=== PATIENT | female | born 1965 | race Caucasian/White ===

== ENCOUNTER 2016-05-07 11:46 | Emergency (ER) | payer OTHER ==
[~2016-05-07] VITALS: Ht 162.6 cm; Wt 137.4 kg
[~2016-05-07 11:46] MED LIST: ALLEGRA180 MG PO; ALPRAZOLAM1 M2 PO; ANUSOL-HC25 M1 RC; HYDROCHLOROTHIA25 M1 PO; LEVOTHYROXINE200 MC1 PO; LOSARTAN POTAS100 M1 PO; METFORMIN HCL500 M3 PO; METOPROLOL TART25 M1 PO; NASONEX17 GM NASB; PANTOPRAZOLE SO40 M1 PO; PERCOCET 325 MG1 TAB PO; PREDNISONE 20MG20 MG PO; PREDNISONE10 MG PO; TESSALON PERLE100 MG PO; TOPAMAX25 M3 PO; VISTARIL25 MG PO; XOPENEX HFA15 GM INH
--- NOTE | 2016-05-07 12:05 | ED GENERAL ADULT ---
History of Present Illness General Chief Complaint: General Adult Stated Complaint: SENT [facility] CARE FOR EVAL OF HIGH B/P Source: patient Exam Limitations: no limitations Vital Signs & Intake/Output Vital Signs & Intake/Output Vital Signs Date Time Temp Pulse Resp B/P Pulse O2 O2 Flow FiO2 Ox Delivery Rate 05/07 1510 98.0 87 16 160/75 95 Room Air 05/07 1325 174/82 05/07 1312 99 Room Air 05/07 1309 80 183/77 05/07 1308 80 16 183/77 100 Room Air 05/07 1212 180/100 05/07 1151 98.0 90 16 177/115 97 Room Air Allergies Coded Allergies: Iodinated Contrast Media - Oral and (Severe, STOPS BREATHING 05/07/16) ceftriaxone (Severe, FACIAL SWELLING 05/07/16) Cephalosporins (SWELLING 05/07/16) Penicillins (UNKNOWN 05/07/16) Sulfa (Sulfonamide Antibiotics) (UNKNOWN 05/07/16) erythromycin base (SWELLING 05/07/16) metoclopramide (UNKNOWN 05/07/16) moxifloxacin (From AVELOX) (UNKNOWN 05/07/16) Reconcile Medications Alprazolam 1 MG TABLET 1 TAB PO TIDPRN PRN ANXIETY (Reported) Hydrochlorothiazide 25 MG TABLET 1 TAB PO DAILY PRN UNKNOWN (Reported) Hydroxyzine Pamoate 25 MG CAPSULE 1 CAP PO BID PRN SWELLING (Reported) Labetalol HCl 100 MG TABLET 1 TAB PO BID HTN Levalbuterol Tartrate (Xopenex Hfa) 45 MCG/ACTUATION HFA.AER.AD 2 PUF INH Q4-6 PRN PRN ASTHMA (Reported) Levothyroxine Sodium 200 MCG TABLET 1 TAB PO DAILY AC THYROID (Reported) Levothyroxine Sodium (Synthroid) 25 MCG TABLET 0.5 TAB PO DAILY AC THYROID ( Reported) Losartan Potassium 100 MG TABLET 1 TAB PO DAILY BP (Reported) Metformin HCl 500 MG TABLET 2 TAB PO BID DIABETES (Reported) Metoprolol Tartrate 25 MG TABLET 1 TAB PO BID HEART (Reported) Mometasone Furoate (Nasonex) 50 MCG SPRAY.PUMP 1 SPRAY NASB BID NASAL PROBLEMS (Reported) Pantoprazole Sodium 40 MG TABLET.DR 1 TAB PO DAILY GI (Reported) Topiramate (Topamax) 25 MG TABLET 1 TAB PO DAILY MENTAL HEALTH (Reported) Triage Note: PT STATES SHE HAS SOB AND HAS PAIN IN RIGHT SIDE BACK THAT RADIATES UNDER RIGHT BREAST. PT STATES SHE WENT TO WALK IN FOR PAIN AND WAS SENT HERE BECAUSE HER BP WAS ELEVATED. Triage Nurses Notes Reviewed? yes Onset: Gradual Duration: day(s): (3) Timing: no prior history Injury Environment: home Severity: moderate Severity Numbers: 7 Modifying Factors: Improves With: immobilization. Worsens With: movement. HPI: Patient is a 50-year-old female with history of hypertension, hypothyroid, diabetes presenting to the emergency Department chief complaint of shortness of breath, right upper back pain that radiates to the right lower chest of thing going on for the past 3 days. She reports that the pain is worse with deep inspiration. She also reports history of hypertension but currently on non-any medications because medications she was given makes her sick. She also reports intermittent left-sided chest pain. No cough or upper respiratory congestion. Nothing seems to make her symptoms better. She reports intermittent palpitations throughout the day as well. Shortness of breath is worse with exertion. Denies any increasing lower extremity pain or swelling. No travel or recent surgeries. (DOUGLAS FLORES) Past History Travel History Traveled to [place] past 21 day No Medical History Any Pertinent Medical History? 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 No (DOUGLAS FLORES) Review of Systems Review of Systems Constitutional: Reports: malaise. Comments Review of systems: See HPI, All other systems negative. Constitutional, no chills fever or weight loss HEENT: no sore throat no congestion Cardiovascular: No ankle swelling Skin, no jaundice no rashes Respiratory: No cough sputum or hemoptysis GI: No nausea no vomiting : No dysuria No hematuria Muscle skeletal: no neck pain, Neurologic: No numbness no confusion, no headaches Psych: No stress anxiety or depression,. Heme/endocrine: No bruising no bleeding no polyuria or polydipsia Immunology: No splenectomy or history of AIDS (DOUGLAS FLORES) Physical Exam Physical Exam General Appearance: no apparent distress, alert, awake, obese Comments: Obese person in no acute distress HEENT: Pupils equally round and reactive to light and accommodation. Nose is atraumatic. External auditory canal and Tympanic membranes clear. Pharynx normal. No swelling or edema. Neck: Supple, no lymphadenopathy, normal range of motion without pain or tenderness Back: Tender to palpation in the right upper back, no CVA tenderness. Full range of motion Cardiovascular: Regular rate and rhythms no murmurs rubs or gallops, normal JVP Respiratory: Chest is tender to palpation over the right anterior rib miranda, no respiratory distress.breath sounds clear to auscultation bilaterally Abdomen: Soft, obese, nontender nondistended, no appreciable organomegaly. Normal bowel sounds. No ascites Extremity: Nonpitting edema in the calves bilaterally, no calf tenderness to palpation, normal and equal pulses. Neuro: Alert oriented x3 Skin: No appreciable rash on exposed skin, skin is warm and dry. Psych: Appears slightly anxious, memory and judgment is normal. Core Measures ACS in differential dx? Yes CVA/TIA Diagnosis: No Severe Sepsis Present: No Septic Shock Present: No (DOUGLAS FLORES) Progress Differential Diagnoses I considered the following diagnoses in my evaluation of the patient: Hypertensive urgency, pulmonary embolus, bronchitis, pneumonia, medication noncompliance, ACS Plan of Care: Orders Procedure Date/time Status TROPONIN LEVEL 05/07 1724 Active EKG 05/07 1724 Active TOTAL TRIODOTHYROXINE 05/07 1241 Complete FREE T4 05/07 1241 Complete EKG 05/07 1226 Active Telemetry/Recruiting Scheduler 05/07 1221 Active TSH REFLEX 05/07 1221 Complete TROPONIN LEVEL 05/07 1221 Complete PARTIAL THROMBOPLASTIN TIME 05/07 1221 Complete PROTHROMBIN TIME 05/07 1221 Complete D-DIMER 05/07 1221 Complete COMPREHENSIVE METABOLIC PANEL 05/07 1221 Complete CHOLESTEROL 05/07 1221 Complete CBC WITHOUT DIFFERENTIAL 05/07 1221 Complete B-TYPE NATRIURETIC PEP (BNP) 05/07 1221 Complete Laboratory Tests 05/07/16 1807: Troponin I Pending 05/07/16 1241: Anion Gap 9, Estimated GFR > 60, BUN/Creatinine Ratio 17.5, Glucose 111 H, Calcium 9.7, Total Bilirubin 0.6, AST 13 L, ALT 31, Alkaline Phosphatase 78, Troponin I < 0.01, Ynf-T-Wybgtxedtvi Pept 624 H, Total Protein 7.2, Albumin 4.0 , Globulin 3.2, Albumin/Globulin Ratio 1.3, Cholesterol 183, Free T4 1.85 H, Total T3 1.88 H, TSH &T3 &Free T4 Intrp 0.077 L, PT 12.0, INR 1.14, APTT 30, D -Dimer 1413 H, CBC w Diff NO MAN DIFF REQ, RBC 4.86, MCV 83.2, MCH 27.9, RDW 14.5, MPV 7.8, Gran % 68.3, Lymphocytes % 23.3, Monocytes % 5.2, Eosinophils % 2.8, Basophils % 0.4, Absolute Granulocytes 7.4 H, Absolute Lymphocytes 2.5, Absolute Monocytes 0.6, Absolute Eosinophils 0.3, Absolute Basophils 0, PUBS MCHC 33.6 Diagnostic Imaging: Viewed by Me: Radiology Read. Discussed w/RAD: Radiology Read. CXR Impression: PATIENT: EDGAR BELLO PRESENT AGE: 50 PATIENT ACCOUNT NO: [id number] : 63 LOCATION: [facility] ORDERING PHYSICIAN: DOUGLAS VALLES SERVICE DATE: 05/07/16-1221 EXAM TYPE: RAD - XRY-CHEST XRAY, PA AND LATERAL EXAMINATION: XR CHEST CLINICAL INFORMATION: Evaluate for pneumonia. COMPARISON: Multiple chest x-rays most recent prior dated 05/01/2014 TECHNIQUE: 2 views of the chest were obtained. FINDINGS: Stable cardiomediastinal silhouette. Minor plate atelectasis left midlung. No acute airspace opacity. Mild degenerative changes of the thoracic spine. IMPRESSION: No acute pulmonary disease. DICTATED BY: DB VIRK MD DATE/TIME DICTATED:1248 GROUP CAPTAIN:CIERA DATE/TIME TRANSCRIBED:05/07/161248 CONFIDENTIAL, DO NOT COPY WITHOUT APPROPRIATE AUTHORIZATION. Initial ED EKG: SINUS RHYTHM 83 BPM, BORDERLINE t ABNORMALITIES NAME. wITH Prior EKG: unchanged Repeat EKG: unchanged Comments: On arrival patient is hypertensive appears anxious. Lungs are clear to auscultation. She has no unilateral leg swelling. She will have a hypertensive emergency workup. EKG, CBC, CMP, troponin, chest x-ray. Patient complaining of any headaches. No visual changes. No need for CT scan of the head at this time. Given IV labetalol 10 mg initially. We will reassess blood pressure in the next hour or so. Patient informed of all lab work results and imaging results .patient not willing to stay for observation for hypertensive urgency and chest pain. signed AMA form. Blood pressure seems to be trending down with labetalol. Patient will be started on 100 mg labetalol twice a day and follow-up with her primary care physician tomorrow. She will return for any chest pain shortness of breath or concerns. She reports that since the blood pressure is now more controlled the pain has gone away on her right upper back. VQ scan is negative for PE. D/W DR DUQUE AND SHE AGREES WITH PLAN. (DOUGLAS FLORES) Departure Departure Time of Disposition: 1807 Disposition: LEFT AGAINST MEDICAL ADVICE Condition: Stable Clinical Impression Primary Impression: Hypertension Qualifiers: Hypertension type: unspecified secondary hypertension Qualified Code: I15.9 - Secondary hypertension, unspecified Secondary Impressions: Chest pain Qualifiers: Chest pain type: chest pain on breathing Qualified Code: R07.1 - Chest pain on breathing Referrals: UNKNOWN (PCP/Family) Additional Instructions: Follow-up with your primary care physician tomorrow return for any worsening symptoms or concerns. Take blood pressure medication as prescribed. Your primary care physician will have to recheck her blood pressure speech are stable. Departure Forms: Customer Survey General Discharge Information Prescriptions: Current Visit Scripts Labetalol HCl 1 TAB PO BID #60 TAB (DOUGLAS FLORES) PA/AGRICULTURE INSTRUCTOR Co-Sign Statement Statement: ED Attending supervision documentation- [] I saw and evaluated the patient. I have also reviewed all the pertinent lab results and diagnostic results. I agree with the findings and the plan of care as documented in the PA's/AGRICULTURE INSTRUCTOR's documentation. [X] I have reviewed the ED Record and agree with the PA's/AGRICULTURE INSTRUCTOR's documentation. [] Additions or exceptions (if any) to the PAs/AGRICULTURE INSTRUCTOR's note and plan are summarized below: [] (DUNIA SALAS,DENNIS) Critical Care Note Critical Care Note Critical Care Time: 30-74 min (MARK VALLES,DOUGLAS)
[2016-05-07] MEDS ORDERED: HYDROXYZINE PAM25 M2 PO (12:25)
[2016-05-07] MEDS ORDERED: SYNTHROID25 MCG PO (12:26)
[2016-05-07 12:48] LABS: ABSOLUTE BASOPHIL COUNT 0 /CUMM (0.0-0.2); ABSOLUTE EOSINOPHIL COUNT 0.3 /CUMM (0.0-0.7); ABSOLUTE GRANULOCYTE CT 7.4 /CUMM (1.4-6.5); ABSOLUTE LYMPH COUNT 2.5 /CUMM (1.2-3.4); ABSOLUTE MONOCYTE COUNT 0.6 /CUMM (0.10-0.60); BASOPHIL % 0.4 % (0.0-2.0); EOSINOPHIL % 2.8 % (0-5); GRANULOCYTE % 68.3 % (42.2-75.2); HEMATOCRIT 40.4 % (37-47); MEAN CORPUSCULAR HGB 27.9 PG (27.0-31.0); MEAN CORPUSCULAR HGB CONC 33.6 G/DL (33.0-37.0); MEAN CORPUSCULAR VOLUME 83.2 FL (81.0-99.0); MEAN PLATELET VOLUME 7.8 FL (7.4-10.4); PLATELET COUNT 323 /CUMM (130-400); RBC DISTRIBUTION WIDTH 14.5 % (11.5-14.5); RED BLOOD CELL CT 4.86 /CUMM (4.20-5.40); WHITE BLOOD CELL COUNT 10.9 /CUMM (4.8-10.8)
--- NOTE | 2016-05-07 12:53 | RADIOLOGY REPORT ---
EXAMINATION: XR CHEST CLINICAL INFORMATION: Evaluate for pneumonia. COMPARISON: Multiple chest x-rays most recent prior dated 05/01/2014 TECHNIQUE: 2 views of the chest were obtained. FINDINGS: Stable cardiomediastinal silhouette. Minor plate atelectasis left midlung. No acute airspace opacity. Mild degenerative changes of the thoracic spine. IMPRESSION: No acute pulmonary disease.
[2016-05-07 13:10] LABS: PTT 30 SEC (25-37)
--- NOTE | 2016-05-07 16:58 | NUCLEAR MEDICINE REPORT ---
EXAMINATION: PULMONARY VENTILATION PERFUSION STUDY CLINICAL INFORMATION: Shortness of breath. Right upper back, chest pain. COMPARISON: V/Q scan done on 09/09/2012. Chest radiograph done on 05/07/2016. TECHNIQUE: Serial gamma scintillation camera images were obtained over the chest in the PA projection during the single breath, equilibrium rebreathing and washout of 14.7 mCi Xe 133 gas. The patient then received 3.5 mCi Tc-99m MAA intravenously and an 6-view perfusion study was performed. FINDINGS: VENTILATION IMAGES: Normal symmetrical radiotracer distribution is identified throughout both lung miranda on both wash-in as well as wash-out images without any significant retention of radiotracer. PERFUSION IMAGES: Normal symmetric radiotracer distribution is noted throughout both lung miranda, without evidence of any perfusion defect. Specifically, no mismatch perfusion defect is present. No significant change since prior study. IMPRESSION: Very low probability for pulmonary embolism, unchanged since prior study.
[2016-05-07] MEDS ORDERED: LABETALOL HCL100 M1 PO (18:18)
[2016-05-07 18:20] VITALS: BP 156/78
== END 2016-05-07 18:30 | disposition left against medical advice (07) ==
LOC: ERH 11:46
PROVIDERS: Physician Assistant
DX: I10 Essential (primary) hypertension (principal); R07.9 Chest pain, unspecified
CPT/HCPCS: 78582; 93005; 93010; 96374; 99291; A9540; A9558

== ENCOUNTER 2017-07-26 17:22 | Emergency (ER) | payer OTHER ==
[~2017-07-26] VITALS: Ht 162.6 cm; Wt 127.0 kg
[~2017-07-26 17:22] MED LIST changes: +CLEOCIN HCL300 M1 PO; +HYDROXYZINE PAM25 M2 PO; +LABETALOL HCL100 M1 PO; +SYNTHROID25 MCG PO
--- NOTE | 2017-07-26 18:42 | ED GI/GU/ABDOMINAL COMPLAINT ---
History of Present Illness General Chief Complaint: Abdominal Pain/Flank Pain Stated Complaint: R FLANK/BACK PAIN Source: patient, old records Exam Limitations: no limitations Vital Signs & Intake/Output Vital Signs & Intake/Output Vital Signs Date Time Temp Pulse Resp B/P B/P Pulse O2 O2 Flow FiO2 Mean Ox Delivery Rate 07/27 1935 154/82 07/26 1932 98.2 68 18 218/108 96 Room Air 07/26 1726 98.9 87 18 200/120 98 Room Air Allergies Coded Allergies: Iodinated Contrast- Oral and IV Dye (Iodinated Contrast Media - Oral and) ( Severe, STOPS BREATHING 05/07/16) ceftriaxone (Severe, FACIAL SWELLING 05/07/16) Cephalosporins (SWELLING 05/07/16) Penicillins (UNKNOWN 05/07/16) Sulfa (Sulfonamide Antibiotics) (UNKNOWN 05/07/16) erythromycin base (SWELLING 05/07/16) levofloxacin (From LEVAQUIN) (RESP. DISTRESS 07/26/17) metoclopramide (UNKNOWN 05/07/16) moxifloxacin (From AVELOX) (UNKNOWN 05/07/16) Reconcile Medications Alprazolam 1 MG TABLET 1 TAB PO TIDPRN PRN ANXIETY (Reported) Clindamycin HCl (Cleocin HCl) 300 MG CAPSULE 1 CAP PO TID diverituclitis Hydrochlorothiazide 25 MG TABLET 1 TAB PO DAILY PRN UNKNOWN (Reported) Hydroxyzine Pamoate 25 MG CAPSULE 1 CAP PO BID PRN SWELLING (Reported) Labetalol HCl 100 MG TABLET 1 TAB PO BID HTN Levalbuterol Tartrate (Xopenex Hfa) 45 MCG/ACTUATION HFA.AER.AD 2 PUF INH Q4-6 PRN PRN ASTHMA (Reported) Levothyroxine Sodium 200 MCG TABLET 1 TAB PO DAILY AC THYROID (Reported) Levothyroxine Sodium (Synthroid) 25 MCG TABLET 0.5 TAB PO DAILY AC THYROID ( Reported) Losartan Potassium 100 MG TABLET 1 TAB PO DAILY BP (Reported) Metformin HCl 500 MG TABLET 2 TAB PO BID DIABETES (Reported) Metoprolol Tartrate 25 MG TABLET 1 TAB PO BID HEART (Reported) Mometasone Furoate (Nasonex) 50 MCG SPRAY.PUMP 1 SPRAY NASB BID NASAL PROBLEMS (Reported) Pantoprazole Sodium 40 MG TABLET.DR 1 TAB PO DAILY GI (Reported) Topiramate (Topamax) 25 MG TABLET 1 TAB PO DAILY MENTAL HEALTH (Reported) Triage Note: PT C/O RIGHT SIDED BACK PAIN THAT RADIATES INTO THE FRONT OF HER GROIN. PT REPORTS PAIN FOR 2.5 DAYS AND STATES WHEN SHE GETS UP SHE IS FEELING DIZZY AND HAS NAUSEA. Triage Nurses Notes Reviewed? yes ? N Is pt currently ? No HPI: 51F PMH HTN, HLD, T2DM presenting with 2 days of left lower back pain. Started abruptly 2 nights ago with no inciting event or trauma, 11/25 today radiating to RLQ. Pain is present laterally near hip and radiates to RLQ. She denies sciatic symptoms, as well as weakness, numbness, paresthesia, saddle paresthesia , incontinence, retention. She also reports lower abdominal bloating for 1 day that worsens upon standing. She denies dysuria or hematuria. No other complaints. Past History Travel History Traveled to [place] past 21 day No Medical History Any Pertinent Medical History? 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 No Review of Systems Review of Systems Constitutional: Reports: no symptoms. EENTM: Reports: no symptoms. Respiratory: Reports: no symptoms. Cardiovascular: Reports: no symptoms. GI: Reports: no symptoms. Genitourinary: Reports: no symptoms. Musculoskeletal: Reports: no symptoms. Skin: Reports: no symptoms. Neurological/Psychological: Reports: no symptoms. Hematologic/Endocrine: Reports: no symptoms. Immunologic/Allergic: Reports: no symptoms. All Other Systems: Reviewed and Negative Physical Exam Physical Exam General Appearance: well developed/nourished, mild distress Head: atraumatic, normal appearance Eyes: Bilateral: normal appearance. Ears, Nose, Throat, Mouth: moist mucous membrane Neck: normal inspection, full range of motion Respiratory: normal breath sounds, no respiratory distress Cardiovascular: regular rate/rhythm Gastrointestinal: soft, non-tender Rectal: deferred Back: normal inspection, normal range of motion, no vertebral tenderness, No paravertebral tenderness Extremities: normal range of motion Neurologic/Psych: no motor/sensory deficits, awake, alert, oriented x 3, normal mood/affect Skin: intact, normal color, warm/dry Core Measures ACS in differential dx? No Sepsis Present: No Sepsis Focused Exam Completed? No Progress Differential Diagnosis: appendicitis, bowel obstruction, diverticulitis, hepatitis, ischemic bowel, kidney stone, PID/cervicitis, perforated viscous, SBO , UTI/pyelo Plan of Care: Orders Procedure Date/time Status URINALYSIS 07/26 1738 Complete COMPREHENSIVE METABOLIC PANEL 07/26 1738 Complete CBC WITHOUT DIFFERENTIAL 07/26 1738 Complete Laboratory Tests 07/26/17 185: Urine Color YEL, Urine Clarity HAZY H, Urine pH 6.0, Ur Specific [place] >= 1.030, Urine Protein TRACE H, Urine Ketones NEG, Urine Nitrite NEG, Urine Bilirubin NEG, Urine Urobilinogen 0.2, Ur Leukocyte Esterase NEG, Ur Microscopic SEDIMENT EXAMINED, Urine RBC 1-3, Urine WBC 3-5 H, Ur Epithelial Cells FEW, Urine Bacteria RARE H, Urine Hemoglobin NEG, Urine Glucose NEG 07/26/17 185: Anion Gap 10, Estimated GFR > 60, BUN/Creatinine Ratio 17.5, Glucose 114 H, Calcium 9.3, Total Bilirubin 0.3, AST 14, ALT 23, Alkaline Phosphatase 80, Total Protein 7.2, Albumin 4.0, Globulin 3.2, Albumin/Globulin Ratio 1.3, CBC w Diff NO MAN DIFF REQ, RBC 4.77, MCV 87.4, MCH 29.2, MCHC 33.4, RDW 14.5, MPV 7.8, Gran % 66.7, Lymphocytes % 22.9, Monocytes % 5.0, Eosinophils % 4.9, Basophils % 0.5, Absolute Granulocytes 7.2 H, Absolute Lymphocytes 2.5, Absolute Monocytes 0.5, Absolute Eosinophils 0.5, Absolute Basophils 0.1 Diagnostic Imaging: Viewed by Me: CT Scan. Discussed w/RAD: CT Scan. Radiology Impression: PATIENT: EDGAR BELLO PRESENT AGE: 51 PATIENT ACCOUNT NO: [id number] : 63 LOCATION: [facility] ORDERING PHYSICIAN: Rodrigo Colvin MD SERVICE DATE: 07/26/17 EXAM TYPE: CAT - CT ABD & PELVIS W/O IV CONTRAS EXAMINATION: CT ABDOMEN AND PELVIS WITHOUT CONTRAST CLINICAL INFORMATION: Right flank pain radiating into the right lower quadrant. COMPARISON: CT abdomen/pelvis 12/22/2015. TECHNIQUE: Multidetector volumetric imaging was performed from the superior aspect of the liver through the pubic symphysis. Sagittal and coronal reformatted images were obtained on the technologist's workstation. DLP: 1410.34 mGy-cm FINDINGS: LUNG BASES: The visualized lung bases are unremarkable. LIVER, GALLBLADDER, AND BILIARY TREE: The liver is normal in size, shape, and attenuation. No focal hepatic lesion or biliary ductal dilatation is present. The gallbladder is surgically absent. PANCREAS: Unremarkable. SPLEEN: Unremarkable. ADRENAL GLANDS: Unremarkable. KIDNEYS AND URETERS: Minimal nonspecific perinephric stranding bilaterally which is unchanged from prior examination. No renal calculi or hydronephrosis. BLADDER : Collapsed, limiting evaluation. No calculi. GASTROINTESTINAL TRACT: There are prominent sigmoid diverticuli with mild scattered pericolonic inflammatory changes surrounding the sigmoid colon compatible with acute but uncomplicated diverticulitis. The small and large bowel are otherwise unremarkable. The appendix is normal. ABDOMINAL WALL: No significant hernia is appreciated. LYMPH NODES: Normal. VASCULAR: Minimal atherosclerotic changes of the abdominal aorta and its branches. PELVIC VISCERA: Unremarkable. OSSEOUS STRUCTURES: Mild degenerative changes of the visualized spine. No acute osseous finding. There are moderate degenerative changes of the pubic symphysis. IMPRESSION: Findings suggesting acute but uncomplicated sigmoid diverticulitis. No renal or ureteral calculi. DICTATED BY: Dwayne Atwood MD DATE/TIME DICTATED:07/26/171920 LYE PEEL OPERATOR:CIERA DATE/TIME TRANSCRIBED:07/26/171920 CONFIDENTIAL, DO NOT COPY WITHOUT APPROPRIATE AUTHORIZATION. <Electronically signed in Other Vendor System> SIGNED BY: Dwayne Atwood MD 07/26/171934 Initial ED EKG: none Departure Departure Disposition: HOME OR SELF CARE Condition: Stable Clinical Impression Primary Impression: Acute diverticulitis Secondary Impressions: Right sciatic nerve pain Referrals: Vasile Crystal MD (PCP/Family) Additional Instructions: Follow up with your PCP. Take all of the antibiotics prescribed. You can use warm compresses, Flexeril, and Lidocaine patches for your back pain. Ask your PCP for a referral to physical therapist. Return to ER if new or worsening symptoms. Departure Forms: Customer Survey General Discharge Information Prescriptions: Current Visit Scripts Clindamycin HCl 1 CAP PO TID #21 CAP Lidocaine 1 PAT TOP DAILY #30 PAT
[2017-07-26 19:13] LABS: ABSOLUTE BASOPHIL COUNT 0.1 /CUMM (0.0-0.2); ABSOLUTE EOSINOPHIL COUNT 0.5 /CUMM (0.0-0.7); ABSOLUTE GRANULOCYTE CT 7.2 /CUMM (1.4-6.5); ABSOLUTE LYMPH COUNT 2.5 /CUMM (1.2-3.4); ABSOLUTE MONOCYTE COUNT 0.5 /CUMM (0.10-0.60); BASOPHIL % 0.5 % (0.0-2.0); EOSINOPHIL % 4.9 % (0-5); GRANULOCYTE % 66.7 % (42.2-75.2); HEMATOCRIT 41.7 % (37-47); MEAN CORPUSCULAR HGB 29.2 PG (27.0-31.0); MEAN CORPUSCULAR HGB CONC 33.4 G/DL (33.0-37.0); MEAN CORPUSCULAR VOLUME 87.4 FL (81.0-99.0); MEAN PLATELET VOLUME 7.8 FL (7.4-10.4); PLATELET COUNT 350 /CUMM (130-400); RBC DISTRIBUTION WIDTH 14.5 % (11.5-14.5); RED BLOOD CELL CT 4.77 /CUMM (4.20-5.40); WHITE BLOOD CELL COUNT 10.8 /CUMM (4.8-10.8)
--- NOTE | 2017-07-26 19:35 | CT SCAN REPORT ---
EXAMINATION: CT ABDOMEN AND PELVIS WITHOUT CONTRAST CLINICAL INFORMATION: Right flank pain radiating into the right lower quadrant. COMPARISON: CT abdomen/pelvis 12/22/2015. TECHNIQUE: Multidetector volumetric imaging was performed from the superior aspect of the liver through the pubic symphysis. Sagittal and coronal reformatted images were obtained on the technologist's workstation. DLP: 1410.34 mGy-cm FINDINGS: LUNG BASES: The visualized lung bases are unremarkable. LIVER, GALLBLADDER, AND BILIARY TREE: The liver is normal in size, shape, and attenuation. No focal hepatic lesion or biliary ductal dilatation is present. The gallbladder is surgically absent. PANCREAS: Unremarkable. SPLEEN: Unremarkable. ADRENAL GLANDS: Unremarkable. KIDNEYS AND URETERS: Minimal nonspecific perinephric stranding bilaterally which is unchanged from prior examination. No renal calculi or hydronephrosis. BLADDER: Collapsed, limiting evaluation. No calculi. GASTROINTESTINAL TRACT: There are prominent sigmoid diverticuli with mild scattered pericolonic inflammatory changes surrounding the sigmoid colon compatible with acute but uncomplicated diverticulitis. The small and large bowel are otherwise unremarkable. The appendix is normal. ABDOMINAL WALL: No significant hernia is appreciated. LYMPH NODES: Normal. VASCULAR: Minimal atherosclerotic changes of the abdominal aorta and its branches. PELVIC VISCERA: Unremarkable. OSSEOUS STRUCTURES: Mild degenerative changes of the visualized spine. No acute osseous finding. There are moderate degenerative changes of the pubic symphysis. IMPRESSION: Findings suggesting acute but uncomplicated sigmoid diverticulitis. No renal or ureteral calculi.
[2017-07-26 19:36] VITALS: BP 154/82
[2017-07-26] MEDS ORDERED: CLINDAMYCIN HC300 M1 PO (20:10)
[2017-07-26] MEDS ORDERED: LIDOCAINE1 EACH TOP (20:10)
== END 2017-07-26 20:37 ==
LOC: ERH 17:22
PROVIDERS: Emergency Medicine
DX: K57.92 Diverticulitis of intestine, part unspecified, without perforation or abscess without bleeding (principal); M54.41 Lumbago with sciatica, right side
CPT/HCPCS: 74176; 81001; 96374; 96375; J1885